=== PATIENT | male | born 1970 | race Caucasian/White ===

== ENCOUNTER 2019-04-11 19:50 | Outpatient (CLI) | payer BC ==
[~2019-04-11 19:50] MED LIST: CYCL10TA9 PO; TRAM50TA2 PO
== END 2019-04-12 06:30 | disposition home or self-care (01) ==
LOC: SLEEP 19:50
PROVIDERS: ATTEND Otolaryngology Otolaryngology/Facial Plastic Surgery
DX: G47.33 Obstructive sleep apnea (adult) (pediatric) (principal)
CPT/HCPCS: 95811

== ENCOUNTER 2019-08-06 15:38 | Emergency (ER) | payer BC ==
[~2019-08-06] VITALS: Ht 177.8 cm; Wt 97.7 kg
[2019-08-06] MEDS ORDERED: ASPIRIN 81 MG CHEW (CHILDREN'S ASA) ONE (15:45)
[2019-08-06] MEDS ORDERED: NITROGLYCERIN 0.4 MG SL TABS BTL 25'S SL ONE (15:45)
[2019-08-06] MEDS: NITROGLYCERIN 0.4 MG SL TABS BTL 25'S SL PRN ×2 (15:48→15:54)
--- NOTE | 2019-08-06 15:54 | ED Chest Pain ---
General Stated Complaint: CHEST PAIN Source: patient Exam Limitations: no limitations History of Present Illness Date Seen by Provider: Aug 06, 2019 Time Seen by Provider: 15:47 Initial Comments Return to ER with reports of left lateral chest pain rather sudden in onset 30 minutes ago while [facility]. Sometimes he can take a deep breath and get the pain to subside temporarily, sometimes taking a deep breath worsens the pain. No nausea but he is a little diaphoretic on appearance. No personal or family history of heart disease, he is not diabetic he does not have hypertension, nonsmoker, slightly overweight and was recently told he had elevated cholesterol. Timing/Duration: 2-3 days Severity/Quality: moderate Location: other (lateral left) Radiation: no radiation Activities at Onset: none Prior CP/Workup: no prior chest pain ASA po CHECKER AND PACKER: No NTG SL CHECKER AND PACKER: No Allergies and Home Medications Allergies Coded Allergies: No Known Drug Allergies (Unverified , 12/18/15) Home Medications Cyclobenzaprine HCl 10 Mg Tablet, 10 MG PO Q8H PRN for SPASMS Prescribed by: JULIANNA GIBBS on 12/18/152209 Tramadol HCl 50 Mg Tablet, 50 MG PO Q4H PRN for PAIN Prescribed by: JULIANNA GIBBS on 12/18/152209 Patient Home Medication List Home Medication List Reviewed: Yes Review of Systems Review of Systems Constitutional: see HPI EENTM: No Symptoms Reported Respiratory: No Symptoms Reported Cardiovascular: See HPI, Chest Pain Gastrointestinal: No Symptoms Reported Genitourinary: No Symptoms Reported Musculoskeletal: no symptoms reported Skin: no symptoms reported Psychiatric/Neurological: No Symptoms Reported Endocrine: No Symptoms Reported Hematologic/Lymphatic: No Symptoms Reported Past Vavwnxh-Cezkqn-Rsuqab Hx Patient Social History Alcohol Beverage of Choice: Beer Recent Foreign Travel: No Contact w/Someone Who Travel: No Recent Hopitalizations: No Immunizations Up To Date Tetanus Booster (TDap): Less than 5yrs Seasonal Allergies Seasonal Allergies: No Past Medical History Orthopedic Reproductive Disorders: No Sexually Transmitted Disease: No Family Medical History No Pertinent Family Hx Physical Exam Vital Signs Vital Signs - First Documented 08/06/19 15:40 Temp 37.4 Pulse 85 Resp 20 B/P (MAP) 131/84 (100) Pulse Ox 100 O2 Delivery Room Air Capillary Refill : Height, Weight, BMI Height: 5'10" Weight: 215lbs. oz. 97.574587tt; 28.79 BMI Method:Stated General Appearance: No Apparent Distress, WD/WN Neck: Full Range of Motion, Normal Inspection Respiratory: No Accessory Muscle Use, No Respiratory Distress Cardiovascular: Regular Rate, Rhythm, Normal Peripheral Pulses Gastrointestinal: Normal Bowel Sounds, Non Tender, Soft Neurologic/Psychiatric: Alert, Oriented x3 Skin: Normal Color, Warm/Dry, Diaphoresis Progress/Results/Core Measures Results/Orders Lab Results Laboratory Tests Test 08/06/19 15:45 08/06/19 17:24 Range/Units White Blood Count 8.0 4.3-11.0 10^3/uL Red Blood Count 5.19 4.35-5.85 10^6/uL Hemoglobin 14.8 13.3-17.7 G/DL Hematocrit 45 40-54 % Mean Corpuscular Volume 87 80-99 FL Mean Corpuscular Hemoglobin 29 25-34 PG Mean Corpuscular Hemoglobin Concent 33 32-36 G/DL Red Cell Distribution Width 13.2 10.0-14.5 % Platelet Count 218 130-400 10^3/uL Mean Platelet Volume 10.0 7.4-10.4 FL Neutrophils (%) (Auto) 54 42-75 % Lymphocytes (%) (Auto) 36 12-44 % Monocytes (%) (Auto) 9 0-12 % Eosinophils (%) (Auto) 1 0-10 % Basophils (%) (Auto) 1 0-10 % Neutrophils # (Auto) 4.3 1.8-7.8 X 10^3 Lymphocytes # (Auto) 2.8 1.0-4.0 X 10^3 Monocytes # (Auto) 0.7 0.0-1.0 X 10^3 Eosinophils # (Auto) 0.1 0.0-0.3 10^3/uL Basophils # (Auto) 0.0 0.0-0.1 10^3/uL Prothrombin Time 13.9 12.2-14.7 SEC INR Comment 1.0 0.8-1.4 Activated Partial Thromboplast Time 32 24-35 SEC D-Dimer < 0.27 0.00-0.49 UG/ML Sodium Level 142 135-145 MMOL/L Potassium Level 4.0 3.6-5.0 MMOL/L Chloride Level 107 98-107 MMOL/L Carbon Dioxide Level 26 21-32 MMOL/L Anion Gap 9 5-14 MMOL/L Blood Urea Nitrogen 16 7-18 MG/DL Creatinine 1.15 0.60-1.30 MG/DL Estimat Glomerular Filtration Rate > 60 BUN/Creatinine Ratio 14 Glucose Level 95 70-105 MG/DL Calcium Level 9.5 8.5-10.1 MG/DL Corrected Calcium 9.3 8.5-10.1 MG/DL Magnesium Level 2.1 1.6-2.4 MG/DL Total Bilirubin 0.6 0.1-1.0 MG/DL Aspartate Amino Transf (AST/SGOT) 23 5-34 U/L Alanine Aminotransferase (ALT/SGPT) 31 0-55 U/L Alkaline Phosphatase 56 40-136 U/L Myoglobin 40.5 10.0-92.0 NG/ML Troponin I < 0.028 < 0.028 <0.028 NG/ML B-Type Natriuretic Peptide < 10.0 <100.0 PG/ML Total Protein 7.8 6.4-8.2 GM/DL Albumin 4.2 3.2-4.5 GM/DL My Orders Orders - 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[employer] 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 Cbc With Automated Diff (08/06/19 15:46) Magnesium (08/06/19 15:46) Chest 1 View, Ap/Pa Only (08/06/19 15:46) Cardiac Profile 1 (08/06/19 15:46) Comprehensive Metabolic Panel (08/06/19 15:46) Myoglobin Serum (08/06/19 15:46) Protime With Inr (08/06/19 15:46) Partial Thromboplastin Time (08/06/19 15:46) O2 (08/06/19 15:46) Monitor-Rhythm Ecg Trace Only (08/06/19 15:46) Ed Iv/Invasive Line Start (08/06/19 15:46) BNP (08/06/19 15:46) Fibrin Degradation Products (08/06/19 15:46) Nitroglycerin 0.4 Mg Btl 25's (Nitrostat (08/06/19 16:00) Aspirin Chewable Tablet (Baby Aspirin Ch (08/06/19 16:00) Nitroglycerin 0.4 Mg Btl 25's (Nitrostat (08/06/19 15:45) Aspirin Chewable Tablet (Baby Aspirin Ch (08/06/19 15:45) Ekg Tracing (08/06/19 17:10) Troponin I (08/06/19 17:45) Medications Given in ED Current Medications Medications Dose Ordered Sig/Malka Route Start Time Stop Time Status Last Admin Dose Admin Aspirin 324 mg ONCE ONCE PO 08/06/19 16:00 08/06/19 16:01 DC 08/06/19 15:48 324 MG Nitroglycerin 0.4 mg UD PRN SL 08/06/19 16:00 08/06/19 18:23 DC 08/06/19 15:54 0.4 MG Vital Signs/I&O 08/06/19 08/06/19 08/06/19 15:40 15:40 18:20 Temp 37.4 37.4 Pulse 85 71 Resp 20 17 B/P (MAP) 131/84 (100) 107/73 (100) Pulse Ox 100 100 O2 Delivery Room Air Room Air Room Air Departure Communication (Admissions) 1636-As long as he lays on his left side he does not have pain. When he lays on his back the pain returns. Impression Primary Impression: Chest wall pain Disposition: HOME, SELF-CARE Condition: Stable Departure-Patient Inst. Decision time for Depature: 18:10 Referrals: SRAVAN GABRIEL MD (PCP/Family) Primary Care Physician Patient Instructions: Chest Pain That Is Not Caused by the Heart (DC) Add. Discharge Instructions: 1. Return to ER for any concerns 2. Copy Copies To 1: SRAVAN GABRIEL MD, PETER J APRN Aug 06, 2019 15:54
[2019-08-06] MEDS ORDERED: ASPIRIN 81 MG CHEW (CHILDREN'S ASA) PO ONE (16:00)
[2019-08-06 16:11] LABS: PROTHROMBIN TIME PATIENT 13.9 SEC (12.2-14.7)
--- NOTE | 2019-08-06 16:11 | Diagnostic Imaging Report ---
INDICATION: Left-sided chest pain. COMPARISON: 12/18/2015 FINDINGS: Single frontal view of the chest demonstrates normal heart size and pulmonary vascularity. The lungs are well aerated and clear. No large pleural effusion or pneumothorax is seen. The visualized osseous structures show no acute abnormalities. IMPRESSION: 1. No acute cardiopulmonary process. Dictated by: Dictated on workstation # [id number]
[2019-08-06 16:16] LABS: HEMATOCRIT 45 % (40-54); HEMOGLOBIN 14.8 G/DL (13.3-17.7); MEAN CORPUSCULAR HEMOGLOBIN 29 PG (25-34); MEAN CORPUSCULAR HGB CONC 33 G/DL (32-36); MEAN CORPUSCULAR VOLUME 87 FL (80-99); PLATELET COUNT 218 10^3/uL (130-400); RED CELL DISTRIBUTION WIDTH 13.2 % (10.0-14.5)
[2019-08-06 16:17] LABS: BASOPHILS % (AUTO) 1 % (0-10); EOSINOPHILS # (AUTO) 0.1 10^3/uL (0.0-0.3); EOSINOPHILS % (AUTO) 1 % (0-10); LYMPHOCYTES # (AUTO) 2.8 X 10^3 (1.0-4.0); LYMPHOCYTES % (AUTO) 36 % (12-44); MONOCYTES # (AUTO) 0.7 X 10^3 (0.0-1.0); MONOCYTES % (AUTO) 9 % (0-12); NEUTROPHILS # (AUTO) 4.3 X 10^3 (1.8-7.8); NEUTROPHILS % (AUTO) 54 % (42-75)
[2019-08-06 16:20] LABS: ALANINE AMINOTRANSFERASE 31 U/L (0-55); ALBUMIN 4.2 GM/DL (3.2-4.5); ALKALINE PHOSPHATASE 56 U/L (40-136); BILIRUBIN,TOTAL 0.6 MG/DL (0.1-1.0); BUN/CREATININE RATIO 14; CALCIUM 9.5 MG/DL (8.5-10.1); CARBON DIOXIDE 26 MMOL/L (21-32); CHLORIDE 107 MMOL/L (98-107); CREATININE SERUM 1.15 MG/DL (0.60-1.30); GFR ESTIMATED > 60; GLUCOSE 95 MG/DL (70-105); MAGNESIUM 2.1 MG/DL (1.6-2.4); SODIUM 142 MMOL/L (135-145); TOTAL PROTEIN 7.8 GM/DL (6.4-8.2)
[2019-08-06 18:20] VITALS: BP 107/73
== END 2019-08-06 18:20 | disposition home or self-care (01) ==
LOC: EDUNIT# 15:38 → ER 15:40
DX: R07.89 Other chest pain (principal)
CPT/HCPCS: 36415; 71045; 80053; 83735; 83874; 83880; 84484; 85025; 85379; 85610; 85730; 93005; 93041